=== PATIENT | female | born 1970 | race Caucasian/White ===

== ENCOUNTER 2020-03-02 14:07 | Emergency (ER) | payer OTHER ==
[~2020-03-02] VITALS: Ht 160 cm; Wt 61.2 kg
[2020-03-02 14:18] VITALS: BP 130/80
--- NOTE | 2020-03-02 14:30 | NUR ---
49 YO FEMALE S/P FALL TODAY C/O LEFT FOOT PAIN & SWELLING & RIGHT BIG TOE PAIN. NO BLEEDING OR DISCHARGE NOTED. MED HX: HTN, COPD, HLD
--- NOTE | 2020-03-02 14:39 | NUR ---
PT TAKEN TO XRAY VIA WHEELCHAIR
[2020-03-02] MEDS ORDERED: KETOROLAC 30 MG/ML VIAL IM ONE (15:00)
[2020-03-02 15:33] VITALS: BP 130/80
--- NOTE | 2020-03-02 15:34 | NUR ---
Patient discharged with v/s stable. Written and verbal after care instructions given and explained. Patient alert, oriented and verbalized understanding of instructions. Ambulatory with steady gait. All questions addressed prior to discharge. ID band removed. Patient advised to follow up with PMD. Rx of TYLENOL AND MOTRIN given. Patient educated on indication of medication including possible reaction and side effects. Opportunity to ask questions provided and answered.
== END 2020-03-02 15:34 | disposition home or self-care (01) ==
LOC: MED 14:07
DX: S92.352A Displaced fracture of fifth metatarsal bone, left foot, initial encounter for closed fracture (principal); S92.911A Unspecified fracture of right toe(s), initial encounter for closed fracture; J45.909 Unspecified asthma, uncomplicated; I10 Essential (primary) hypertension; E78.00 Pure hypercholesterolemia, unspecified; W18.39XA Other fall on same level, initial encounter; Y93.89 Activity, other specified; Y92.89 Other specified places as the place of occurrence of the external cause; Y99.8 Other external cause status; Z88.5 Allergy status to narcotic agent; Z88.0 Allergy status to penicillin
CPT/HCPCS: 29515; 73630; 73660; 96372; 99284; J1885